=== PATIENT | male | born 1990 | race African-American/Black ===

== ENCOUNTER 2017-04-07 18:36 | Emergency (ER) | payer OTHER ==
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
[2017-04-07] MEDS ORDERED: ACETAMINOPHEN 325 MG TABLET PO ONE (21:14)
[2017-04-07] MEDS ORDERED: IBUPROFEN 800 MG TABLET PO ONE (21:14)
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
[2017-04-07 22:23] VITALS: BP 149/75
== END 2017-04-07 22:21 | disposition home or self-care (01) ==
LOC: ER 18:36
DX: S39.012A Strain of muscle, fascia and tendon of lower back, initial encounter (principal); S29.012A Strain of muscle and tendon of back wall of thorax, initial encounter; S80.01XA Contusion of right knee, initial encounter; V49.40XA Driver injured in collision with unspecified motor vehicles in traffic accident, initial encounter; F17.200 Nicotine dependence, unspecified, uncomplicated
CPT/HCPCS: 99283

== ENCOUNTER 2017-04-23 23:38 | Emergency (ER) | payer OTHER ==
[2017-04-23 23:53] VITALS: BP 139/72
== END 2017-04-24 01:30 | disposition left against medical advice (07) ==
LOC: ER 23:38
DX: Z53.21 Procedure and treatment not carried out due to patient leaving prior to being seen by health care provider (principal)

== ENCOUNTER 2018-01-11 14:41 | Emergency (ER) | payer OTHER ==
[2018-01-11] MEDS ORDERED: CYCLOBENZAPRINE HCL 10 MG TABLET PO ONE (16:15)
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
[2018-01-11 17:56] VITALS: BP 134/98
== END 2018-01-11 17:57 | disposition home or self-care (01) ==
LOC: ER 14:41
DX: S16.1XXA Strain of muscle, fascia and tendon at neck level, initial encounter (principal); S09.90XA Unspecified injury of head, initial encounter; M54.2 Cervicalgia; R51 Headache; R55 Syncope and collapse; V87.7XXA Person injured in collision between other specified motor vehicles (traffic), initial encounter; F17.200 Nicotine dependence, unspecified, uncomplicated
CPT/HCPCS: 70450; 72125; 99284